=== PATIENT | female | born 1955 | race Caucasian/White ===

== ENCOUNTER 2021-05-18 12:57 | Emergency (ER) | payer OTHER ==
[~2021-05-18] VITALS: Ht 165.1 cm; Wt 61.2 kg
[2021-05-18 13:43] LABS: ABG BASE EXCESS 1.5 mmol/L; ABG HCO3 25.8 mmol/L; ABG PCO2 39.7 mmHg (35.0-45.0); ABG PH 7.431 (7.350-7.450); ABG PO2 60.2 mmHg (75.0-100.0); ABG SITE LEFT RADIAL; ABG TOTAL HEMOGLOBIN 14.7 G/dL (12.0-16.0); COHb 1.1 % (0.5-1.5); MetHb 0.2 % (0.0-1.5); O2Hb 90.8 % (94.0-97.0); VENT MODE Nasal Cannula
[2021-05-18 14:02] LABS: HEMATOCRIT 43.4 % (31.2-41.9); MEAN CORPUSCULAR HEMOGLOBIN 30.1 uug (24.7-32.8); MEAN CORPUSCULAR VOLUME 89.7 fL (75.5-95.3); PLATELET COUNT (AUTO) 104 K/uL (179-408)
[2021-05-18 14:08] LABS: POTASSIUM 4.4 mmol/L (3.5-5.1)
--- NOTE | 2021-05-18 14:32 | NUR ---
Pt resting in [place] in room 3 with NAD noted at this time.
[2021-05-18 14:42] LABS: LYMPHOCYTES % (MANUAL) 23 % (20-40); MONOCYTES % (MANUAL) 16 % (2-10); NEUTROPHILS % (MANUAL) 61 % (42-75)
[2021-05-18 14:48] LABS: BILIRUBIN,TOTAL 0.9 mg/dL (0.2-1.0); TOTAL PROTEIN, SERUM 7.6 g/dL (6.4-8.2)
[2021-05-18] MEDS ORDERED: DEXA6TAB6 PO (15:23)
[2021-05-18] MEDS ORDERED: AZIT500T PO (15:23)
[2021-05-18] MEDS ORDERED: ZINC220C2 PO (15:23)
--- NOTE | 2021-05-18 15:33 | NUR ---
Patient does not wish to proceed with medical care recommended by . Patient given information related to possible complications, up to and including , which could occur as a result of leaving the hospital at this time. Patient verbalizes understanding of risks involved due to leaving against medical advice. Patient has signed AMA form. Pt left the ER before written ACI and Rx information was given. I called the pt on her telephone, pt was spoke with .
== END 2021-05-18 15:36 | disposition left against medical advice (07) ==
LOC: ER 12:57
DX: U07.1 COVID-19 (principal); R09.02 Hypoxemia; R94.31 Abnormal electrocardiogram [ECG] [EKG]; R79.1 Abnormal coagulation profile
CPT/HCPCS: 36600; 71045; 80053; 82550; 82728; 83605; 83615; 83880; 84145; 84450; 84484; 85007; 85025; 85379; 85385; 85730; 86140; 87040 ×2; 87260; 87275; 87279; 87280; 87400; 87426; 93005; 99285; U0003; 36415; 70030-TC; A4663